=== PATIENT | female | born 1955 | race African-American/Black ===

== ENCOUNTER 2018-01-26 08:39 | Emergency (ER) | payer OTHER ==
[~2018-01-26] VITALS: Ht 180.3 cm; Wt 178.7 kg
[2018-01-26 08:39] VITALS: BP_SYST 145
--- NOTE | 2018-01-26 08:39 | NUR ---
Pt BIB BLS, placed to ER bed 05, to gown, to produce production team member. Pt c/o lower abdominal pain with N/V, fever and chills, H/A, burning urinations and urinary incontinence x 3 days, worse since last night. No active N/V at this time. Denies c/o C/P or SOB.
[2018-01-26] MEDS ORDERED: VANCOMYCIN HCL 1,000 MG in D5W 250 ML IV ONE (08:45)
[2018-01-26] MEDS ORDERED: PIPERACILLIN/TAZO 3.38 GM in D5W 50 ML IV ONE (08:45)
[2018-01-26] MEDS ORDERED: MORPHINE 2 MG/ML INJ. SYRINGE IVP ONE (08:45)
[2018-01-26] MEDS ORDERED: ONDANSETRON HCL 4 MG/2 ML VIAL IVP ONE (08:45)
[2018-01-26] MEDS ORDERED: NS 1000 ML IV.SOLN IV ONE (08:45)
--- NOTE | 2018-01-26 08:50 | NUR ---
Dr. Contreras at bedside.
--- NOTE | 2018-01-26 09:05 | NUR ---
# 20 gauge angiocath placed to LAC. Use of asceptic technique. Opsite placed over site. Blood return noted. Blood for lab drawn from site. Flushed with 10 cc of normal saline. No evidence of infiltration noted. Patient tolerated well.
[2018-01-26] MEDS ORDERED: ACETAMINOPHEN 500 MG TABLET PO ONE (09:15)
[2018-01-26] MEDS ORDERED: IBUPROFEN 800 MG TABLET PO ONE (09:15)
[2018-01-26] MEDS ORDERED: PIPERACILLIN/TAZOBACTAM 3.375 GM/VIAL (ZOSYN) IV ONE (09:19)
[2018-01-26] MEDS ORDERED: VANCOMYCIN HCL 1000 MG/VIAL IV ONE (09:19)
--- NOTE | 2018-01-26 09:30 | NUR ---
Pt to CT via [facility].
[2018-01-26 09:34] LABS: BASOPHILS % (AUTO) 0.1 % (0.0-2.0); EOSINOPHILS % (AUTO) 0.1 % (0.0-4.0); HEMATOCRIT 37.5 % (36-48); HEMOGLOBIN 12.6 g/dL (12.0-16.0); LYMPHOCYTES # (AUTO) 0.6 K/uL (1.0-5.5); LYMPHOCYTES % (AUTO) 5.3 % (20.5-51.5); MEAN CORPUSCULAR HEMOGLOBIN 30 pg (27-31); MEAN CORPUSCULAR HGB CONC 34 % (32-36); MEAN CORPUSCULAR VOLUME 88 fL (79.0-98.0); MONOCYTES # (AUTO) 0.9 K/uL (0.0-1.0); MONOCYTES % (AUTO) 8.2 % (1.7-9.3); NEUTROPHILS # (AUTO) 9.5 K/uL (1.8-7.7); NEUTROPHILS % (AUTO) 86.3 % (40.0-70.0); PLATELET COUNT (AUTO) 157 K/uL (130-430); RED BLOOD CELL COUNT(AUTO) 4.26 MIL/uL (4.2-6.2); RED CELL DISTRIBUTION WIDTH 14.6 % (9.0-15.0)
[2018-01-26 09:37] LABS: CALCIUM 8.9 mg/dL (8.4-11.0); CREATININE 1.72 mg/dL (0.55-1.30); POTASSIUM 4.1 mmol/L (3.5-5.1)
--- NOTE | 2018-01-26 09:40 | NUR ---
Pt returns from CT. No needs verbalized at this time.
[2018-01-26 09:44] LABS: ALBUMIN 3.1 g/dL (3.4-4.8); TOTAL BILIRUBIN 0.9 mg/dL (0.0-1.0)
[2018-01-26 09:46] LABS: INR 1.1 (0.8-1.2); PROTHROMBIN TIME 11.3 SECS (9.5-12.5)
[2018-01-26 11:19] LABS: BILIRUBIN,URINE NEGATIVE (NEGATIVE); BLOOD, URINE 3+ (NEGATIVE); CLARITY/URINE CLOUDY (CLEAR); COLOR,URINE YELLOW (YELLOW); GLUCOSE,URINE NEGATIVE (NEGATIVE); KETONES,URINE NEGATIVE (NEGATIVE); LEUKOCYTE ESTERASE ,URINE 3+ (NEGATIVE); NITRITE, URINE POSITIVE (NEGATIVE); PH,URINE 5.5 (5.0-8.0); PROTEIN URINE 2+ (NEGATIVE)
--- NOTE | 2018-01-26 11:24 | NUR ---
Dr. Contreras on the phone with Dr. Martin from [place].
[2018-01-26 12:05] LABS: RBC,URINE 80-100 /HPF (0-3)
[2018-01-26 12:06] LABS: BACTERIA,URINE FEW /HPF (None Seen); MUCUS,URINE None Seen /LPF (None Seen); WBC,URINE 80-100 /HPF (0-3); YEAST,URINE None Seen /HPF (None Seen)
--- NOTE | 2018-01-26 12:35 | NUR ---
Dr. Martin called from [place] to [facility] that she is working on the [facility] transfer. Dr. Contreras notified.
--- NOTE | 2018-01-26 12:55 | NUR ---
SPOKE WITH [facility] AND PT IS TO GO TO [facility] EMERGENCY ROOM, DR TOBAR ACCEPTING. REPORT # [phone], [facility] AT 1345
--- NOTE | 2018-01-26 13:28 | NUR ---
Report given to JOVAN Gann at [facility].
--- NOTE | 2018-01-26 13:28 | NUR ---
Ford tabares in ED - 01/26/18 at 1330 by SDKINGSLEY Pt report given to JOVAN Gann at [facility].
[2018-01-26 14:00] VITALS: BP_SYST 112
--- NOTE | 2018-01-26 14:00 | NUR ---
Patient to be transferred to [facility]. Is being transferred due to higher level of care. Receiving facility has accepting physician and available space. ER physician has signed transfer form. Patient or responsible republican has agreed to transfer and signed form. Patient belongings inventoried and will be sent with patient. Copy of nursing notes, lab reports, EKG, Physicians Orders and X-rays to be sent with patient. Report called to JOVAN Gann at receiving facility. Receiving physician is Dr. Kerr. [facility] ambulance service has been called for transfer.
== END 2018-01-26 14:00 | disposition short-term general hospital (02) ==
LOC: SED 08:39
DX: A41.9 Sepsis, unspecified organism (principal); N39.0 Urinary tract infection, site not specified; Z88.8 Allergy status to other drugs, medicaments and biological substances
CPT/HCPCS: 36415; 71045; 74176; 80053; 81000; 83605; 84484; 85025; 85610; 85730; 87040; 87086; 87186; 93005; 96365; 96366; 96367; 96375; 99285; J2270; J2405; J2543; J3370; J7030

== ENCOUNTER 2021-12-07 04:06 | Inpatient (IN) | payer MEDICARE, OTHER ==
[~2021-12-07] VITALS: Ht 180.3 cm; Wt 205.0 kg
[2021-12-07 05:51] VITALS: BP_SYST 134
[2021-12-07] MEDS ORDERED: AZITHROMYCIN 500 MG in NS 250 ML IV ONE (06:15)
[2021-12-07] MEDS ORDERED: ALBUTEROL SULFATE 0.083% 2.5 MG/3 ML VIAL.NEB INH ONE ×2 (06:30→08:15)
[2021-12-07] MEDS ORDERED: cefTRIAXone 1 GM in D5W 50 ML IV ONE (06:30)
[2021-12-07 07:08] LABS: ANION GAP 1 (5-15); CALCIUM 8.6 mg/dL (8.4-11.0); CHLORIDE 101 mmol/L (98-107); CREATININE 1.21 mg/dL (0.55-1.30); GLUCOSE 147 mg/dL (70-99); POTASSIUM 4.3 mmol/L (3.5-5.1); SODIUM SERUM 139 mmol/L (136-145); UREA NITROGEN, BLOOD 16 mg/dL (8-21)
[2021-12-07 07:19] LABS: ALANINE AMINOTRANSFERASE 67 U/L (12-78); ALBUMIN 2.8 g/dL (3.4-4.8); ASPARTATE AMINOTRANSFERASE 56 U/L (10-37); TOTAL BILIRUBIN 0.7 mg/dL (0.0-1.0)
[2021-12-07 07:20] LABS: GFR AFRICAN AMERICAN 57 mL/min (>90)
[2021-12-07 07:42] LABS: BASOPHILS % (AUTO) 0.4 % (0.0-2.0); EOSINOPHILS # (AUTO) 0.1 K/uL (0.0-0.4); EOSINOPHILS % (AUTO) 1.3 % (0.0-4.0); HEMATOCRIT 45.4 % (36-48); HEMOGLOBIN 14.7 g/dL (12.0-16.0); LYMPHOCYTES # (AUTO) 0.9 K/uL (1.0-5.5); LYMPHOCYTES % (AUTO) 13.3 % (20.5-51.5); MEAN CORPUSCULAR HEMOGLOBIN 30 pg (27-31); MEAN CORPUSCULAR HGB CONC 32 % (32-36); MEAN CORPUSCULAR VOLUME 93 fL (79.0-98.0); MONOCYTES # (AUTO) 0.6 K/uL (0.0-1.0); MONOCYTES % (AUTO) 9.3 % (1.7-9.3); NEUTROPHILS % (AUTO) 75.7 % (40.0-70.0); PLATELET COUNT (AUTO) 113 K/uL (130-430); RED BLOOD CELL COUNT(AUTO) 4.89 MIL/uL (4.2-6.2); RED CELL DISTRIBUTION WIDTH 15.4 % (9.0-15.0); WHITE BLOOD COUNT (AUTO) 6.6 K/uL (4.8-10.8)
[2021-12-07] MEDS ORDERED: iohexoL 350 mgI/mL, 100 ML INFUS..BTL IV ONE (10:27)
[2021-12-07] MEDS ORDERED: iohexoL 300 mgI/mL, 150 ML INFUS..BTL IV ONE (10:54)
[2021-12-07] MEDS ORDERED: ENOXAPARIN SODIUM 120 MG/0.8 ML SYRINGE SUBCUT ONE (14:30)
[2021-12-07] MEDS ORDERED: ONDANSETRON HCL 4 MG/2 ML VIAL IVP PRN (16:30)
[2021-12-07] MEDS ORDERED: MORPHINE 2 MG/ML INJ. SYRINGE IVP PRN ×2 (16:30)
[2021-12-07] MEDS ORDERED: MAGNESIUM SULFATE 50 ML IV PRN (16:30)
[2021-12-07] MEDS ORDERED: *LOVENOX 1MG/KG Q12H/PHARMACY XX ONE (16:30)
[2021-12-07] MEDS ORDERED: IPRATROPIUM/ALBUTEROL SULFATE 3 ML AMPUL.NEB (DUONEB) INH PRN (16:30)
[2021-12-07] MEDS ORDERED: LORazepam 2 MG/ML VIAL IVP PRN (16:30)
[2021-12-07] MEDS ORDERED: DOCUSATE SODIUM 100 MG CAPSULE PO PRN (16:30)
[2021-12-07] MEDS ORDERED: MUPIROCIN 2% TOPICAL OINTMENT 22 GM NS PRN (16:30)
[2021-12-07] MEDS ORDERED: ZOLPIDEM TARTRATE 5 MG TABLET PO PRN (16:30)
[2021-12-07] MEDS ORDERED: POTASSIUM CHLORIDE 20 MEQ TAB.PRT.SR PO PRN (16:30)
[2021-12-07] MEDS ORDERED: NACL 0.9% 1,000 ML IV SCH (16:30)
[2021-12-07] MEDS ORDERED: ACETAMINOPHEN 325 MG TABLET PO PRN (16:30)
[2021-12-07] MEDS ORDERED: amLODIPine BESYLATE 10 MG TABLET PO ONE (17:15)
[2021-12-07] MEDS ORDERED: ENOXAPARIN SODIUM 80 MG/0.8 ML SYRINGE ONE (18:21)
[2021-12-08 06:18] LABS: BASOPHILS % (AUTO) 0.4 % (0.0-2.0); EOSINOPHILS # (AUTO) 0.2 K/uL (0.0-0.4); EOSINOPHILS % (AUTO) 2.8 % (0.0-4.0); HEMATOCRIT 43.4 % (36-48); HEMOGLOBIN 14.2 g/dL (12.0-16.0); LYMPHOCYTES # (AUTO) 1.1 K/uL (1.0-5.5); LYMPHOCYTES % (AUTO) 15.2 % (20.5-51.5); MEAN CORPUSCULAR HEMOGLOBIN 30 pg (27-31); MEAN CORPUSCULAR HGB CONC 33 % (32-36); MEAN CORPUSCULAR VOLUME 92 fL (79.0-98.0); MONOCYTES # (AUTO) 0.6 K/uL (0.0-1.0); NEUTROPHILS # (AUTO) 5.2 K/uL (1.8-7.7); NEUTROPHILS % (AUTO) 73.6 % (40.0-70.0); PLATELET COUNT (AUTO) 125 K/uL (130-430); RED BLOOD CELL COUNT(AUTO) 4.71 MIL/uL (4.2-6.2); RED CELL DISTRIBUTION WIDTH 15.3 % (9.0-15.0)
[2021-12-08 06:58] LABS: CALCIUM 8.3 mg/dL (8.4-11.0); CREATININE 1.04 mg/dL (0.55-1.30); POTASSIUM 3.9 mmol/L (3.5-5.1)
[2021-12-08 07:58] LABS: INR 1.2 (0.8-1.2)
[2021-12-08] MEDS: ENOXAPARIN SODIUM 30 MG/0.3 ML SYRINGE SUBCUT SCH ×2 (08:00→20:21)
[2021-12-08] MEDS ORDERED: FUROSEMIDE 40 MG/4 ML VIAL IVP SCH (09:00)
[2021-12-08] MEDS ORDERED: amLODIPine BESYLATE 10 MG TABLET PO SCH (09:00)
[2021-12-08] MEDS: ENOXAPARIN SODIUM 120 MG/0.8 ML SYRINGE SUBCUT SCH ×2 (09:32→20:20)
[2021-12-08] MEDS ORDERED: FURO-150 PO (10:15)
[2021-12-08] MEDS ORDERED: ATEN50TA PO (10:15)
[2021-12-08] MEDS ORDERED: TURM1CAP2 PO (10:15)
[2021-12-08] MEDS ORDERED: LIDOINT TP (10:15)
[2021-12-08] MEDS ORDERED: LACT1CAP58 PO (10:15)
[2021-12-08] MEDS ORDERED: MULT-976 PO (10:15)
[2021-12-08] MEDS ORDERED: COLL15OI3 TP (10:15)
[2021-12-08] MEDS ORDERED: VIT1CAPS25 PO (10:15)
[2021-12-08] MEDS ORDERED: MUPI15CR12 TP (10:15)
[2021-12-08] MEDS ORDERED: OMEP20TA20 PO (10:15)
[2021-12-08] MEDS ORDERED: ACET-2634 PO (10:15)
[2021-12-08] MEDS ORDERED: ASCO500T20 PO (10:15)
[2021-12-08] MEDS ORDERED: LORA10TA7 PO (10:15)
[2021-12-08] MEDS ORDERED: ALBU8.5H8 INH (10:15)
[2021-12-08] MEDS ORDERED: HYDR-3921 PO (10:15)
[2021-12-08 11:37] VITALS: BP_SYST 147
[2021-12-08 15:45] VITALS: BP_SYST 143
[2021-12-08 21:37] VITALS: BP_SYST 160
== END 2021-12-08 22:20 | disposition short-term general hospital (02) | DRG 189 ==
LOC: SED 04:06 → STU 18:54
PROVIDERS: ADMIT General Practice; ATTEND General Practice
DX: J96.01 Acute respiratory failure with hypoxia (principal); J44.1 Chronic obstructive pulmonary disease with (acute) exacerbation; E46 Unspecified protein-calorie malnutrition; Z68.44 Body mass index [BMI] 60.0-69.9, adult; E44.1 Mild protein-calorie malnutrition; I11.0 Hypertensive heart disease with heart failure; E11.9 Type 2 diabetes mellitus without complications; E66.01 Morbid (severe) obesity due to excess calories; I50.9 Heart failure, unspecified; Z20.822 Contact with and (suspected) exposure to COVID-19; Z85.42 Personal history of malignant neoplasm of other parts of uterus; Z86.16 Personal history of COVID-19; Z87.891 Personal history of nicotine dependence; Z90.710 Acquired absence of both cervix and uterus
CPT/HCPCS: 36415; 71045; 78579; 80048; 80053; 82803-TC; 83036; 83605; 83735; 83880; 84484; 85025; 85379; 85610-TC; 85730-TC; 87040; 93306; 94640; 94760; 96372; 96374; 96375; 99291; A9539; G0378; J0456; J0696; J1650; J1940; J7050; J7060; J7613; Q9967

== ENCOUNTER 2023-05-06 15:34 | Emergency (ER) | payer MEDICARE, MEDICAID ==
[~2023-05-06] VITALS: Ht 180.3 cm; Wt 162.8 kg
[~2023-05-06 15:34] MED LIST: ACET-2634 PO; ALBU8.5H8 INH; ASCO500T20 PO; ATEN50TA PO; COLL15OI3 TP; FURO-150 PO; HYDR-3921 PO; LACT1CAP58 PO; LIDOINT TP; LORA10TA7 PO; MULT-976 PO; MUPI15CR12 TP; OMEP20TA20 PO; TURM1CAP2 PO; VIT1CAPS25 PO
[2023-05-06 15:39] VITALS: BP_SYST 178; PULSE 89; RESP 20; TEMP 98; O2SAT 97
[2023-05-06 17:02] LABS: BASOPHILS # (AUTO) 0.1 K/uL (0.0-0.2); BASOPHILS % (AUTO) 0.7 % (0.0-2.0); EOSINOPHILS # (AUTO) 0.1 K/uL (0.0-0.4); HEMATOCRIT 40.5 % (36-48); HEMOGLOBIN 13.4 g/dL (12.0-16.0); LYMPHOCYTES # (AUTO) 1.4 K/uL (1.0-5.5); MEAN CORPUSCULAR HEMOGLOBIN 29 pg (27-31); MEAN CORPUSCULAR HGB CONC 33 % (32-36); MEAN CORPUSCULAR VOLUME 89 fL (79.0-98.0); MONOCYTES # (AUTO) 0.6 K/uL (0.0-1.0); MONOCYTES % (AUTO) 9.5 % (1.7-9.3); NEUTROPHILS # (AUTO) 4.5 K/uL (1.8-7.7); NEUTROPHILS % (AUTO) 66.8 % (40.0-70.0); PLATELET COUNT (AUTO) 161 K/uL (130-430); RED BLOOD CELL COUNT(AUTO) 4.56 MIL/uL (4.2-6.2); RED CELL DISTRIBUTION WIDTH 13.9 % (9.0-15.0); WHITE BLOOD COUNT (AUTO) 6.7 K/uL (4.8-10.8)
[2023-05-06 17:16] LABS: ALANINE AMINOTRANSFERASE 19 U/L (12-78); ALBUMIN 3.2 g/dL (3.4-4.8); ANION GAP 3 (5-15); ASPARTATE AMINOTRANSFERASE 18 U/L (10-37); CALCIUM 9.5 mg/dL (8.4-11.0); CARBON DIOXIDE 33 mmol/L (23-29); CHLORIDE 102 mmol/L (98-107); CREATININE 1.24 mg/dL (0.55-1.30); GFR AFRICAN AMERICAN 55 mL/min (>90); GFR NON AFRICAN-AMERICAN 46 mL/min (>90); GLUCOSE 98 mg/dL (74-106); POTASSIUM 4.5 mmol/L (3.5-5.1); SODIUM SERUM 138 mmol/L (136-145); TOTAL BILIRUBIN 0.7 mg/dL (0.0-1.0); TOTAL PROTEIN, SERUM 7.1 g/dL (6.4-8.3); UREA NITROGEN, BLOOD 17 mg/dL (8-21)
[2023-05-06 19:33] VITALS: BP_SYST 169; PULSE 85; RESP 19; TEMP 97.9; O2SAT 98
[2023-05-06] MEDS ORDERED: LIDOCAINE VISCOUS 2%, 15 ML UDC MM ONE (21:00)
[2023-05-06] MEDS ORDERED: MAG-AL HYDROX/SIMETH 30 ML UDC PO ONE (21:00)
[2023-05-06] MEDS ORDERED: DICYCLOMINE HCL 10 MG/5 ML SOLUTION PO ONE (21:00)
[2023-05-06] MEDS ORDERED: OMEP-268 PO (21:26)
== END 2023-05-06 21:27 | disposition home or self-care (01) ==
LOC: SED 15:34
DX: R07.89 Other chest pain (principal); R10.13 Epigastric pain; E11.9 Type 2 diabetes mellitus without complications; I10 Essential (primary) hypertension; Z88.6 Allergy status to analgesic agent; Z91.041 Radiographic dye allergy status; Z88.8 Allergy status to other drugs, medicaments and biological substances; Z79.899 Other long term (current) drug therapy
CPT/HCPCS: 99285; 71045; 80053; 83880; 85025; 84484; 36415; 93005; J2001